=== PATIENT | female | born 1945 | race Hispanic/Latino ===

== ENCOUNTER 2020-11-17 08:30 | Inpatient (IN) | payer MEDICARE ==
[~2020-11-17] VITALS: Ht 149.9 cm; Wt 73.9 kg
[2020-11-17] MEDS ORDERED: PIPER-TAZ 3.375 GM 50 ML IV ONE (08:45)
[2020-11-17] MEDS ORDERED: VANCOMYCIN 1GM/NS 250 ML 250 ML IV ONE (09:30)
[2020-11-17] MEDS ORDERED: VANCOMYCIN 1GM/NS 250 ML 250 ML ONE (09:41)
[2020-11-17] MEDS ORDERED: PIPER-TAZ 3.375 GM 50 ML ONE (09:41)
[2020-11-17] MEDS ORDERED: MORPHINE SULFATE 5 MG/ML VIAL IV ONE (10:00)
[2020-11-17] MEDS ORDERED: MORPHINE SULFATE INJ 4 MG/ML INJ 1ML IV ONE (10:07)
[2020-11-17] MEDS ORDERED: MORPHINE SULFATE INJ 4 MG/ML INJ 1ML ONE (10:14)
[2020-11-17] MEDS ORDERED: ONDANSETRON HCL INJ 2MG/ML 2ML 2 MG/ML VIAL IV PRN (11:00)
[2020-11-17] MEDS ORDERED: SODIUM CHLORIDE FLUSH 10 ML SYR INJ PRN (11:00)
[2020-11-17 13:28] VITALS: BP 98/52
[2020-11-17 17:04] VITALS: BP 98/52
[2020-11-17] MEDS ORDERED: RENAGEL800 MG PO (17:05)
[2020-11-17] MEDS ORDERED: ULTRAM50 MG PO (17:05)
[2020-11-17] MEDS ORDERED: SYNTHROID100 MCG PO (17:05)
[2020-11-17] MEDS ORDERED: LIPITOR20 MG PO (17:05)
[2020-11-17] MEDS ORDERED: MIDODRINE HCL5 MG PO (17:05)
[2020-11-17] MEDS ORDERED: SUCRALFATE1 G/10 ML PO (17:05)
[2020-11-17] MEDS ORDERED: ASPIRIN EC81 MG PO (17:05)
[2020-11-17] MEDS ORDERED: PANTOPRAZOLE SO40 MG PO (17:05)
[2020-11-17] MEDS: MIDODRINE HCL 5 MG TABLET PO SCH (17:15)
[2020-11-17 20:43] VITALS: BP 112/61
[2020-11-17 21:00] VITALS: BP 112/61
[2020-11-17] MEDS: DEXTROSE 50% SYRINGE 50 ML IV PRN (21:26)
[2020-11-18] VITALS (7 sets, daily range): BP systolic 96–146; BP diastolic 36–57
[2020-11-18] MEDS: MIDODRINE HCL 5 MG TABLET PO SCH ×3 (08:00→16:00)
[2020-11-18] MEDS: HYDROCODONE/APAP 10MG-325MG TAB PO PRN ×2 (08:32→12:55)
[2020-11-18] MEDS: GABAPENTIN 100 MG CAP PO SCH ×3 (08:32→16:55)
[2020-11-18] MEDS ORDERED: VANCOMYCIN 1GM/NS 250 ML 250 ML IV SCH (08:45)
[2020-11-18] MEDS: MEGESTROL ACETATE 40 MG TAB PO SCH ×2 (09:00→16:13)
[2020-11-18] MEDS ORDERED: SODIUM THIOSULFATE 25 GM in SODIUM CHLORIDE 0.9% 100 ML 100 ML IV SCH (09:00)
[2020-11-18 09:46] LABS: BASOPHILS % 0.3 % (0.0-1.0); EOSINOPHILS # (AUTO) 0.1 (0.0-0.4); EOSINOPHILS % 1.1 % (0.0-6.0); HEMOGLOBIN 8.7 g/dL (12.0-16.0); LYMPHOCYTES # (AUTO) 0.9 (1.0-3.2); LYMPHOCYTES % 9.2 % (18.0-39.1); MEAN CORPUSCULAR HEMOGLOBIN 29.5 pg (28-32); MEAN CORPUSCULAR VOLUME 98.3 fL (81-99); MONOCYTES % 9.6 % (4.4-11.3); NEUTROPHILS # (AUTO) 7.9 (2.1-6.9); NEUTROPHILS % 79.3 % (38.7-80.0); PLATELET COUNT 169 x10e3/uL (140-360); RED BLOOD COUNT 2.95 x10e6/uL (3.6-5.1)
[2020-11-18] MEDS ORDERED: SODIUM CHLORIDE 0.9% 250ML 250 ML ONE (10:00)
[2020-11-18 10:18] LABS: ANION GAP 16.1 mmol/L (8-16); CALCIUM 7.5 mg/dL (8.4-10.2); CREATININE, SERUM 3.56 mg/dL (0.57-1.11); POTASSIUM 4.1 mmol/L (3.5-5.1)
[2020-11-18] MEDS: PIPERACILLIN/TAZO 2.25 GM 50 ML IV SCH ×3 (11:40→16:55)
[2020-11-18] MEDS: LACTOBACILLUS ACIDOPHILUS CAPSULE PO SCH ×2 (12:01→16:00)
[2020-11-18] MEDS ORDERED: SODIUM CHLORIDE 0.9% 1000ML 2,000 ML ONE (18:32)
[2020-11-18] MEDS ORDERED: ALBUMIN 25% 12.5GM 0.25 GM/ML BTL IV PRN (18:45)
[2020-11-18] MEDS ORDERED: SODIUM CHLORIDE 0.9% 1000ML 2,000 ML IV PRN (18:45)
[2020-11-18] MEDS: SODIUM THIOSULFATE IV SCH (22:00)
[2020-11-18] MEDS: SODIUM CHLORIDE 0.9% IV SCH (22:00)
[2020-11-19] VITALS (8 sets, daily range): BP systolic 71–100; BP diastolic 39–64
[2020-11-19] MEDS: EPOETIN ALFA-EPBX 10,000 UNIT/ML VIAL SC SCH (00:30)
[2020-11-19] MEDS: GABAPENTIN 100 MG CAP PO SCH ×3 (05:13→22:13)
[2020-11-19] MEDS: PIPERACILLIN/TAZO 2.25 GM 50 ML IV SCH ×5 (05:13→23:02)
[2020-11-19 06:35] LABS: BASOPHILS % 0.4 % (0.0-1.0); EOSINOPHILS # (AUTO) 0.1 (0.0-0.4); EOSINOPHILS % 1.4 % (0.0-6.0); HEMATOCRIT 26.3 % (34.2-44.1); HEMOGLOBIN 7.7 g/dL (12.0-16.0); LYMPHOCYTES # (AUTO) 0.9 (1.0-3.2); LYMPHOCYTES % 8.4 % (18.0-39.1); MEAN CORPUSCULAR HEMOGLOBIN 29.8 pg (28-32); MEAN CORPUSCULAR HGB CONC 29.3 g/dL (31-35); MEAN CORPUSCULAR VOLUME 101.9 fL (81-99); MONOCYTES # (AUTO) 0.8 (0.2-0.8); NEUTROPHILS # (AUTO) 8.3 (2.1-6.9); NEUTROPHILS % 81.2 % (38.7-80.0); PLATELET COUNT 128 x10e3/uL (140-360); RED BLOOD COUNT 2.58 x10e6/uL (3.6-5.1); RED CELL DISTRIBUTION WIDTH 18.5 % (11.7-14.4)
[2020-11-19 07:20] LABS: ANION GAP 19.3 mmol/L (8-16); CALCIUM 7.4 mg/dL (8.4-10.2); CREATININE, SERUM 2.26 mg/dL (0.57-1.11); POTASSIUM 4.3 mmol/L (3.5-5.1)
[2020-11-19 07:37] LABS: MAGNESIUM 1.6 MG/DL (1.3-2.1); PHOSPHORUS 1.2 MG/DL (2.3-4.7)
[2020-11-19] MEDS: MIDODRINE HCL 5 MG TABLET PO SCH ×2 (08:41→16:06)
[2020-11-19] MEDS: LACTOBACILLUS ACIDOPHILUS CAPSULE PO SCH ×2 (08:42→16:06)
[2020-11-19] MEDS: MEGESTROL ACETATE 40 MG TAB PO SCH ×2 (08:42→16:06)
[2020-11-19] MEDS: HYDROCODONE/APAP 10MG-325MG TAB PO PRN (10:04)
[2020-11-19] MEDS ORDERED: LACTULOSE SYRUP 20 GM/30 ML UDC PO PRN (10:45)
[2020-11-19] MEDS ORDERED: SODIUM HYPOCHLORITE 0.25% 480 ML SOLN IR ONE (11:00)
[2020-11-19] MEDS ORDERED: GABAPENTIN 100 MG CAP PO SCH (12:00)
[2020-11-19] MEDS: HYDROCODONE/APAP 7.5MG-325MG 1 EA TAB PO SCH ×3 (12:33→23:02)
[2020-11-19] MEDS ORDERED: SODIUM PHOSPHATE IN 0.9 % NACL 20 MMOL in SODIUM CHLORIDE 0.9% 250ML 250 ML IV ONE ×2 (13:00)
[2020-11-19] MEDS: HYDROCORTISONE SOD SUCCINATE 100 MG VIAL IV SCH ×2 (14:26→22:13)
[2020-11-19] MEDS: SENNA-S TABLET PO SCH (16:07)
[2020-11-19] MEDS: MORPHINE SULFATE INJ 4 MG/ML INJ 1ML IV PRN (16:15)
[2020-11-20] VITALS (9 sets, daily range): BP systolic 97–129; BP diastolic 51–68
[2020-11-20] MEDS: MORPHINE SULFATE INJ 4 MG/ML INJ 1ML IV PRN ×2 (04:58→13:31)
[2020-11-20] MEDS: PIPERACILLIN/TAZO 2.25 GM 50 ML IV SCH ×4 (05:05→23:40)
[2020-11-20] MEDS: HYDROCORTISONE SOD SUCCINATE 100 MG VIAL IV SCH ×3 (05:05→21:12)
[2020-11-20] MEDS: HYDROCODONE/APAP 7.5MG-325MG 1 EA TAB PO SCH ×4 (05:52→23:40)
[2020-11-20 07:11] LABS: ALBUMIN 2.2 g/dL (3.5-5.0); ALBUMIN/GLOBULIN RATIO 0.6 (0.8-2.0); ANION GAP 27.3 mmol/L (8-16); CALCIUM 7.4 mg/dL (8.4-10.2); CREATININE, SERUM 3.11 mg/dL (0.57-1.11); MAGNESIUM 1.8 MG/DL (1.3-2.1); PHOSPHORUS 3.5 MG/DL (2.3-4.7); POTASSIUM 5.3 mmol/L (3.5-5.1)
[2020-11-20] MEDS: MEGESTROL ACETATE 40 MG TAB PO SCH ×2 (09:06→17:33)
[2020-11-20] MEDS: MIDODRINE HCL 5 MG TABLET PO SCH ×3 (09:06→17:33)
[2020-11-20] MEDS: GABAPENTIN 100 MG CAP PO SCH ×3 (09:07→21:00)
[2020-11-20] MEDS: LACTOBACILLUS ACIDOPHILUS CAPSULE PO SCH ×2 (09:07→17:33)
[2020-11-20] MEDS: SENNA-S TABLET PO SCH ×2 (09:07→17:33)
[2020-11-21] VITALS (10 sets, daily range): BP systolic 57–135; BP diastolic 43–99
[2020-11-21] MEDS: HYDROCODONE/APAP 7.5MG-325MG 1 EA TAB PO SCH ×4 (05:38→17:10)
[2020-11-21] MEDS: HYDROCORTISONE SOD SUCCINATE 100 MG VIAL IV SCH ×3 (05:38→22:30)
[2020-11-21] MEDS: PIPERACILLIN/TAZO 2.25 GM 50 ML IV SCH ×4 (05:38→17:48)
[2020-11-21] MEDS: MIDODRINE HCL 5 MG TABLET PO SCH ×3 (08:49→15:16)
[2020-11-21] MEDS: LACTOBACILLUS ACIDOPHILUS CAPSULE PO SCH ×2 (08:50→16:24)
[2020-11-21] MEDS: MEGESTROL ACETATE 40 MG TAB PO SCH ×2 (08:50→16:24)
[2020-11-21] MEDS: GABAPENTIN 100 MG CAP PO SCH ×3 (08:50→21:00)
[2020-11-21] MEDS: SENNA-S TABLET PO SCH ×2 (08:51→16:24)
[2020-11-21 14:38] LABS: ALBUMIN 1.9 g/dL (3.5-5.0); ALBUMIN/GLOBULIN RATIO 0.6 (0.8-2.0); ANION GAP 22.8 mmol/L (8-16); CALCIUM 7.3 mg/dL (8.4-10.2); CREATININE, SERUM 3.42 mg/dL (0.57-1.11); PHOSPHORUS 4.8 MG/DL (2.3-4.7); POTASSIUM 4.8 mmol/L (3.5-5.1)
[2020-11-22] VITALS (8 sets, daily range): BP systolic 98–123; BP diastolic 52–71
[2020-11-22] MEDS: PIPERACILLIN/TAZO 2.25 GM 50 ML IV SCH ×3 (00:01→11:51)
[2020-11-22] MEDS: HYDROCODONE/APAP 7.5MG-325MG 1 EA TAB PO SCH ×4 (04:30→18:54)
[2020-11-22 06:37] LABS: BASOPHILS % 0.1 % (0.0-1.0); HEMATOCRIT 24.7 % (34.2-44.1); HEMOGLOBIN 7.5 g/dL (12.0-16.0); LYMPHOCYTES # (AUTO) 0.4 (1.0-3.2); LYMPHOCYTES % 3.9 % (18.0-39.1); MEAN CORPUSCULAR HEMOGLOBIN 29.5 pg (28-32); MEAN CORPUSCULAR HGB CONC 30.4 g/dL (31-35); MEAN CORPUSCULAR VOLUME 97.2 fL (81-99); MONOCYTES # (AUTO) 0.4 (0.2-0.8); MONOCYTES % 3.6 % (4.4-11.3); NEUTROPHILS # (AUTO) 10.4 (2.1-6.9); NEUTROPHILS % 91.7 % (38.7-80.0); PLATELET COUNT 108 x10e3/uL (140-360); RED BLOOD COUNT 2.54 x10e6/uL (3.6-5.1); RED CELL DISTRIBUTION WIDTH 17.7 % (11.7-14.4)
[2020-11-22 06:57] LABS: CALCIUM 7.7 mg/dL (8.4-10.2); CREATININE, SERUM 2.3 mg/dL (0.57-1.11)
[2020-11-22] MEDS: HYDROCORTISONE SOD SUCCINATE 100 MG VIAL IV SCH ×2 (07:15→21:44)
[2020-11-22] MEDS ORDERED: DEXAMETHASONE SOD PHOS 10 MG/1 ML VIAL IV PRN (08:00)
[2020-11-22] MEDS: MEGESTROL ACETATE 40 MG TAB PO SCH ×2 (08:05→17:00)
[2020-11-22] MEDS: LACTOBACILLUS ACIDOPHILUS CAPSULE PO SCH ×2 (08:05→17:00)
[2020-11-22] MEDS: GABAPENTIN 100 MG CAP PO SCH ×3 (08:05→21:45)
[2020-11-22] MEDS: MIDODRINE HCL 5 MG TABLET PO SCH ×3 (08:05→16:00)
[2020-11-22] MEDS: SENNA-S TABLET PO SCH ×2 (08:06→17:00)
[2020-11-22] MEDS ORDERED: SODIUM CHLORIDE 0.9% 250ML 250 ML IV ONE (09:45)
[2020-11-22] MEDS ORDERED: ACETAMINOPHEN 325 MG TAB PO ONE (09:45)
[2020-11-22] MEDS: MORPHINE SULFATE INJ 4 MG/ML INJ 1ML IV PRN (10:28)
[2020-11-22 11:08] LABS: ANISOCYTOSIS SLIGHT; LYMPHOCYTES % (MANUAL) 2 % (19-48); MONOCYTES % (MANUAL) 1 % (3.4-9.0); NEUTROPHILS % (MANUAL) 97 % (40-74); RBC MORPHOLOGY COMMENT NORMAL
[2020-11-22 11:09] LABS: PLATELET MORPHOLOGY COMMENT NORMAL
[2020-11-22 11:11] LABS: HYPOCHROMASIA SLIGHT; PLATELET ESTIMATE SLIGHTLY DECREASED; POIKILOCYTOSIS SLIGHT
[2020-11-22] MEDS ORDERED: ACETAMINOPHEN 325 MG TAB ONE (14:02)
[2020-11-22] MEDS ORDERED: SODIUM CHLORIDE 0.9% 250ML 250 ML ONE (14:02)
[2020-11-22] MEDS: CEFTRIAXONE SOD 1 GM/NS 50 ML 50 ML IV SCH (18:54)
[2020-11-22] MEDS: GENTAMICIN 120MG/NS 100ML 100 ML IV SCH (19:21)
[2020-11-22] MEDS: EPOETIN ALFA-EPBX 10,000 UNIT/ML VIAL SC SCH (19:39)
[2020-11-23] VITALS (8 sets, daily range): BP systolic 94–110; BP diastolic 46–87
[2020-11-23] MEDS: HYDROCODONE/APAP 7.5MG-325MG 1 EA TAB PO SCH ×2 (00:08→06:00)
[2020-11-23] MEDS ORDERED: DEXAMETHASONE SOD PHOS 10 MG/1 ML VIAL ONE (00:24)
[2020-11-23] MEDS ORDERED: SODIUM CHLORIDE 0.9% 250ML 250 ML ONE (00:25)
[2020-11-23] MEDS: CEFTRIAXONE SOD 1 GM/NS 50 ML 50 ML IV SCH ×2 (06:09→17:53)
[2020-11-23 06:24] LABS: BASOPHILS % 0.1 % (0.0-1.0); HEMOGLOBIN 10.2 g/dL (12.0-16.0); LYMPHOCYTES # (AUTO) 0.4 (1.0-3.2); LYMPHOCYTES % 3.9 % (18.0-39.1); MEAN CORPUSCULAR HGB CONC 31.9 g/dL (31-35); MEAN CORPUSCULAR VOLUME 94.1 fL (81-99); MONOCYTES # (AUTO) 0.3 (0.2-0.8); MONOCYTES % 2.5 % (4.4-11.3); NEUTROPHILS # (AUTO) 10.2 (2.1-6.9); NEUTROPHILS % 92.9 % (38.7-80.0); PLATELET COUNT 88 x10e3/uL (140-360); RED CELL DISTRIBUTION WIDTH 17.2 % (11.7-14.4)
[2020-11-23 06:44] LABS: ALBUMIN 2.4 g/dL (3.5-5.0); ALBUMIN/GLOBULIN RATIO 0.7 (0.8-2.0); ANION GAP 23.9 mmol/L (8-16); CALCIUM 7.4 mg/dL (8.4-10.2); CREATININE, SERUM 2.88 mg/dL (0.57-1.11); MAGNESIUM 1.9 MG/DL (1.3-2.1); PHOSPHORUS 5.2 MG/DL (2.3-4.7); POTASSIUM 5.9 mmol/L (3.5-5.1)
[2020-11-23] MEDS: MEGESTROL ACETATE 40 MG TAB PO SCH ×2 (08:17→17:52)
[2020-11-23] MEDS: MIDODRINE HCL 5 MG TABLET PO SCH ×3 (08:17→15:28)
[2020-11-23] MEDS: LACTOBACILLUS ACIDOPHILUS CAPSULE PO SCH ×2 (08:18→17:52)
[2020-11-23] MEDS: GABAPENTIN 100 MG CAP PO SCH ×3 (08:18→20:56)
[2020-11-23] MEDS: SENNA-S TABLET PO SCH ×2 (08:19→17:52)
[2020-11-23] MEDS: HYDROCORTISONE SOD SUCCINATE 100 MG VIAL IV SCH ×2 (09:00→20:56)
[2020-11-23] MEDS: PAROXETINE HCL 20 MG TAB PO SCH (09:45)
[2020-11-23] MEDS: HYDROCODONE/APAP 10MG-325MG TAB PO SCH ×3 (11:53→23:42)
[2020-11-23] MEDS: EPOETIN ALFA-EPBX 10,000 UNIT/ML VIAL SC SCH (13:25)
[2020-11-23] MEDS: GENTAMICIN 120MG/NS 100ML 100 ML IV SCH (15:28)
[2020-11-23] MEDS: ALPRAZOLAM 0.25 MG TAB PO PRN (20:57)
[2020-11-24] VITALS (8 sets, daily range): BP systolic 102–129; BP diastolic 36–58
[2020-11-24] MEDS: CEFTRIAXONE SOD 1 GM/NS 50 ML 50 ML IV SCH ×2 (05:07→17:00)
[2020-11-24] MEDS: HYDROCODONE/APAP 10MG-325MG TAB PO SCH ×3 (05:08→17:16)
[2020-11-24 08:33] LABS: ANION GAP 23.1 mmol/L (8-16); CALCIUM 7.5 mg/dL (8.4-10.2); CREATININE, SERUM 2.31 mg/dL (0.57-1.11); POTASSIUM 4.1 mmol/L (3.5-5.1)
[2020-11-24] MEDS: MEGESTROL ACETATE 40 MG TAB PO SCH ×2 (09:00→16:37)
[2020-11-24] MEDS: GABAPENTIN 100 MG CAP PO SCH ×3 (09:00→20:40)
[2020-11-24] MEDS: MIDODRINE HCL 5 MG TABLET PO SCH ×3 (09:00→16:20)
[2020-11-24] MEDS: PAROXETINE HCL 20 MG TAB PO SCH (09:00)
[2020-11-24] MEDS: SENNA-S TABLET PO SCH ×2 (09:00→16:21)
[2020-11-24] MEDS: LACTOBACILLUS ACIDOPHILUS CAPSULE PO SCH ×2 (09:00→16:37)
[2020-11-24] MEDS: PANTOPRAZOLE SOD 40 MG TABEC PO SCH ×2 (10:27→16:37)
[2020-11-24] MEDS: SUCRALFATE 1 GM/10 ML SUSP PO SCH ×3 (12:12→20:40)
[2020-11-24] MEDS ORDERED: SODIUM CHLORIDE 0.9% 250ML 250 ML ONE (16:37)
[2020-11-24] MEDS: HYDROCORTISONE SOD SUCCINATE 100 MG VIAL IV SCH (16:37)
[2020-11-25] VITALS (11 sets, daily range): BP systolic 76–141; BP diastolic 39–88
[2020-11-25] MEDS: CEFTRIAXONE SOD 1 GM/NS 50 ML 50 ML IV SCH ×2 (06:00→17:15)
[2020-11-25] MEDS: LEVOTHYROXINE SODIUM 100 MCG TAB PO SCH (06:00)
[2020-11-25] MEDS: HYDROCODONE/APAP 10MG-325MG TAB PO SCH ×4 (06:00→17:15)
[2020-11-25 06:51] LABS: BASOPHILS % 0.2 % (0.0-1.0); HEMATOCRIT 33.8 % (34.2-44.1); HEMOGLOBIN 10.4 g/dL (12.0-16.0); LYMPHOCYTES # (AUTO) 0.9 (1.0-3.2); LYMPHOCYTES % 6.7 % (18.0-39.1); MEAN CORPUSCULAR HEMOGLOBIN 29.8 pg (28-32); MEAN CORPUSCULAR HGB CONC 30.8 g/dL (31-35); MEAN CORPUSCULAR VOLUME 96.8 fL (81-99); MONOCYTES # (AUTO) 0.5 (0.2-0.8); MONOCYTES % 3.7 % (4.4-11.3); NEUTROPHILS # (AUTO) 11.4 (2.1-6.9); NEUTROPHILS % 88.6 % (38.7-80.0); PLATELET COUNT 71 x10e3/uL (140-360); RED BLOOD COUNT 3.49 x10e6/uL (3.6-5.1); RED CELL DISTRIBUTION WIDTH 17.6 % (11.7-14.4)
[2020-11-25 07:38] LABS: ANION GAP 22.8 mmol/L (8-16); CALCIUM 7.6 mg/dL (8.4-10.2); CREATININE, SERUM 2.89 mg/dL (0.57-1.11); MAGNESIUM 1.9 MG/DL (1.3-2.1); POTASSIUM 3.8 mmol/L (3.5-5.1)
[2020-11-25] MEDS: PANTOPRAZOLE SOD 40 MG TABEC PO SCH ×2 (08:30→16:50)
[2020-11-25] MEDS: MIDODRINE HCL 5 MG TABLET PO SCH ×3 (08:30→17:15)
[2020-11-25] MEDS: SUCRALFATE 1 GM/10 ML SUSP PO SCH ×4 (08:30→21:36)
[2020-11-25] MEDS: SENNA-S TABLET PO SCH (09:00)
[2020-11-25] MEDS: MEGESTROL ACETATE 40 MG TAB PO SCH ×2 (09:21→16:50)
[2020-11-25] MEDS: GABAPENTIN 100 MG CAP PO SCH ×3 (09:21→21:36)
[2020-11-25] MEDS: LACTOBACILLUS ACIDOPHILUS CAPSULE PO SCH ×2 (09:22→16:50)
[2020-11-25] MEDS: PAROXETINE HCL 20 MG TAB PO SCH (09:28)
[2020-11-25] MEDS ORDERED: ONDANSETRON HCL 4 MG ORAL DISINTEGRATING TAB PO PRN (09:45)
[2020-11-25] MEDS: APIXAB 2.5 MG TABLET PO SCH ×2 (13:48→21:36)
[2020-11-25] MEDS: AMIODARONE HCL 200 MG TAB PO SCH ×2 (13:48→21:00)
[2020-11-25] MEDS: HYDROCORTISONE SOD SUCCINATE 100 MG VIAL IV SCH (16:50)
[2020-11-25] MEDS: MIDODRINE HCL 5 MG TABLET PO PRN (21:36)
[2020-11-26] VITALS (9 sets, daily range): BP systolic 56–223; BP diastolic 33–184
[2020-11-26] MEDS: CEFTRIAXONE SOD 1 GM/NS 50 ML 50 ML IV SCH ×2 (05:11→17:39)
[2020-11-26] MEDS: HYDROCODONE/APAP 10MG-325MG TAB PO SCH ×4 (05:12→17:39)
[2020-11-26] MEDS: LEVOTHYROXINE SODIUM 100 MCG TAB PO SCH (05:12)
[2020-11-26 07:12] LABS: ANION GAP 22.6 mmol/L (8-16); CALCIUM 7.3 mg/dL (8.4-10.2); CREATININE, SERUM 3.51 mg/dL (0.57-1.11); POTASSIUM 3.6 mmol/L (3.5-5.1)
[2020-11-26] MEDS: PANTOPRAZOLE SOD 40 MG TABEC PO SCH ×2 (07:30→17:19)
[2020-11-26] MEDS: SUCRALFATE 1 GM/10 ML SUSP PO SCH ×4 (07:30→21:29)
[2020-11-26] MEDS: MIDODRINE HCL 5 MG TABLET PO SCH ×3 (08:17→17:19)
[2020-11-26] MEDS: ALPRAZOLAM 0.25 MG TAB PO PRN (08:21)
[2020-11-26] MEDS: PAROXETINE HCL 20 MG TAB PO SCH (08:22)
[2020-11-26] MEDS: AMIODARONE HCL 200 MG TAB PO SCH ×2 (08:22→21:29)
[2020-11-26] MEDS: LACTOBACILLUS ACIDOPHILUS CAPSULE PO SCH ×2 (08:22→17:39)
[2020-11-26] MEDS: APIXAB 2.5 MG TABLET PO SCH ×2 (08:22→21:30)
[2020-11-26] MEDS: MEGESTROL ACETATE 40 MG TAB PO SCH ×2 (08:22→17:39)
[2020-11-26] MEDS: GABAPENTIN 100 MG CAP PO SCH ×3 (08:22→21:30)
[2020-11-26] MEDS: DEXTROSE 50% SYRINGE 50 ML IV PRN (12:38)
[2020-11-26] MEDS: HYDROCORTISONE SOD SUCCINATE 100 MG VIAL IV SCH (17:19)
[2020-11-26] MEDS ORDERED: GENTAMICIN 120MG/NS 100ML 100 ML IV SCH (18:00)
[2020-11-27] VITALS (8 sets, daily range): BP systolic 77–123; BP diastolic 31–59
[2020-11-27] MEDS: LEVOTHYROXINE SODIUM 100 MCG TAB PO SCH (06:00)
[2020-11-27] MEDS: HYDROCODONE/APAP 10MG-325MG TAB PO SCH ×4 (06:00→17:23)
[2020-11-27] MEDS: CEFTRIAXONE SOD 1 GM/NS 50 ML 50 ML IV SCH ×2 (06:00→17:23)
[2020-11-27] MEDS: AMIODARONE HCL 200 MG TAB PO SCH ×2 (08:15→21:00)
[2020-11-27] MEDS: SUCRALFATE 1 GM/10 ML SUSP PO SCH ×4 (08:20→21:00)
[2020-11-27] MEDS: PANTOPRAZOLE SOD 40 MG TABEC PO SCH ×2 (08:20→16:35)
[2020-11-27] MEDS: PAROXETINE HCL 20 MG TAB PO SCH (08:21)
[2020-11-27] MEDS: GABAPENTIN 100 MG CAP PO SCH ×3 (08:21→21:00)
[2020-11-27] MEDS: APIXAB 2.5 MG TABLET PO SCH ×2 (08:21→21:00)
[2020-11-27] MEDS: MEGESTROL ACETATE 40 MG TAB PO SCH ×2 (08:21→16:35)
[2020-11-27] MEDS: LACTOBACILLUS ACIDOPHILUS CAPSULE PO SCH ×2 (08:21→16:35)
[2020-11-27] MEDS: MIDODRINE HCL 5 MG TABLET PO SCH ×3 (08:21→16:35)
[2020-11-27] MEDS: HYDROCORTISONE SOD SUCCINATE 100 MG VIAL IV SCH (16:35)
[2020-11-28] VITALS (7 sets, daily range): BP systolic 102–181; BP diastolic 51–151
[2020-11-28] MEDS: LEVOTHYROXINE SODIUM 100 MCG TAB PO SCH (06:00)
[2020-11-28] MEDS: CEFTRIAXONE SOD 1 GM/NS 50 ML 50 ML IV SCH ×2 (06:00→17:51)
[2020-11-28] MEDS: HYDROCODONE/APAP 10MG-325MG TAB PO SCH ×4 (06:00→17:51)
[2020-11-28] MEDS: PANTOPRAZOLE SOD 40 MG TABEC PO SCH ×2 (08:37→17:50)
[2020-11-28] MEDS: SUCRALFATE 1 GM/10 ML SUSP PO SCH ×4 (08:37→21:59)
[2020-11-28] MEDS: AMIODARONE HCL 200 MG TAB PO SCH ×2 (08:38→21:00)
[2020-11-28] MEDS: APIXAB 2.5 MG TABLET PO SCH ×2 (08:38→21:59)
[2020-11-28] MEDS: MIDODRINE HCL 5 MG TABLET PO SCH ×3 (08:38→17:50)
[2020-11-28] MEDS: MEGESTROL ACETATE 40 MG TAB PO SCH ×2 (08:39→17:51)
[2020-11-28] MEDS: GABAPENTIN 100 MG CAP PO SCH ×3 (08:39→21:59)
[2020-11-28] MEDS: PAROXETINE HCL 20 MG TAB PO SCH (08:40)
[2020-11-28] MEDS: LACTOBACILLUS ACIDOPHILUS CAPSULE PO SCH ×2 (08:40→17:51)
[2020-11-28 09:10] LABS: BASOPHILS % 0.1 % (0.0-1.0); EOSINOPHILS % 0.1 % (0.0-6.0); HEMATOCRIT 31.3 % (34.2-44.1); HEMOGLOBIN 9.8 g/dL (12.0-16.0); LYMPHOCYTES # (AUTO) 0.7 (1.0-3.2); LYMPHOCYTES % 5.3 % (18.0-39.1); MEAN CORPUSCULAR HEMOGLOBIN 30.2 pg (28-32); MEAN CORPUSCULAR HGB CONC 31.3 g/dL (31-35); MEAN CORPUSCULAR VOLUME 96.6 fL (81-99); MONOCYTES # (AUTO) 0.5 (0.2-0.8); MONOCYTES % 3.8 % (4.4-11.3); NEUTROPHILS # (AUTO) 12.2 (2.1-6.9); PLATELET COUNT 88 x10e3/uL (140-360); RED BLOOD COUNT 3.24 x10e6/uL (3.6-5.1); RED CELL DISTRIBUTION WIDTH 18.1 % (11.7-14.4)
[2020-11-28 09:31] LABS: ALBUMIN 2.3 g/dL (3.5-5.0); ALBUMIN/GLOBULIN RATIO 0.7 (0.8-2.0); ANION GAP 18.3 mmol/L (8-16); CALCIUM 7.5 mg/dL (8.4-10.2); CREATININE, SERUM 3.52 mg/dL (0.57-1.11); POTASSIUM 3.3 mmol/L (3.5-5.1)
[2020-11-28] MEDS: HYDROCORTISONE SOD SUCCINATE 100 MG VIAL IV SCH (17:50)
[2020-11-29] VITALS (8 sets, daily range): BP systolic 109–158; BP diastolic 48–79
[2020-11-29 05:29] LABS: BASOPHILS % 0.2 % (0.0-1.0); HEMOGLOBIN 8.8 g/dL (12.0-16.0); LYMPHOCYTES # (AUTO) 0.6 (1.0-3.2); LYMPHOCYTES % 4.7 % (18.0-39.1); MEAN CORPUSCULAR HEMOGLOBIN 30.8 pg (28-32); MEAN CORPUSCULAR HGB CONC 31.4 g/dL (31-35); MEAN CORPUSCULAR VOLUME 97.9 fL (81-99); MONOCYTES # (AUTO) 0.5 (0.2-0.8); MONOCYTES % 4.1 % (4.4-11.3); NEUTROPHILS # (AUTO) 11.4 (2.1-6.9); PLATELET COUNT 91 x10e3/uL (140-360); RED BLOOD COUNT 2.86 x10e6/uL (3.6-5.1); RED CELL DISTRIBUTION WIDTH 17.9 % (11.7-14.4)
[2020-11-29] MEDS: HYDROCODONE/APAP 10MG-325MG TAB PO SCH ×5 (06:00→23:51)
[2020-11-29 06:19] LABS: ANION GAP 19.3 mmol/L (8-16); CALCIUM 7.3 mg/dL (8.4-10.2); CREATININE, SERUM 4.12 mg/dL (0.57-1.11); MAGNESIUM 1.8 MG/DL (1.3-2.1); PHOSPHORUS 5.9 MG/DL (2.3-4.7); POTASSIUM 3.3 mmol/L (3.5-5.1)
[2020-11-29] MEDS: CEFTRIAXONE SOD 1 GM/NS 50 ML 50 ML IV SCH ×2 (06:31→16:24)
[2020-11-29] MEDS: LEVOTHYROXINE SODIUM 100 MCG TAB PO SCH (06:31)
[2020-11-29] MEDS: APIXAB 2.5 MG TABLET PO SCH ×2 (08:32→20:30)
[2020-11-29] MEDS: SUCRALFATE 1 GM/10 ML SUSP PO SCH ×4 (08:32→20:30)
[2020-11-29] MEDS: MIDODRINE HCL 5 MG TABLET PO SCH ×3 (08:32→16:22)
[2020-11-29] MEDS: MEGESTROL ACETATE 40 MG TAB PO SCH ×2 (08:32→16:24)
[2020-11-29] MEDS: AMIODARONE HCL 200 MG TAB PO SCH ×2 (08:32→20:30)
[2020-11-29] MEDS: PANTOPRAZOLE SOD 40 MG TABEC PO SCH ×2 (08:32→16:23)
[2020-11-29] MEDS: PAROXETINE HCL 20 MG TAB PO SCH (08:33)
[2020-11-29] MEDS: GABAPENTIN 100 MG CAP PO SCH ×3 (08:33→20:30)
[2020-11-29] MEDS: LACTOBACILLUS ACIDOPHILUS CAPSULE PO SCH ×2 (08:33→16:36)
[2020-11-29] MEDS ORDERED: POTASSIUM CHLORIDE 20 MEQ TAB CR PO ONE (09:15)
[2020-11-29] MEDS ORDERED: MANNITOL 25% 12.5GM/50 ML VIAL IV PRN (13:00)
[2020-11-29] MEDS: MIDODRINE HCL 5 MG TABLET PO PRN (14:00)
[2020-11-29] MEDS ORDERED: CALCITRIOL0.5 MCG PO (14:59)
[2020-11-29] MEDS ORDERED: LEVOTHYROXINE88 MCG PO (14:59)
[2020-11-29] MEDS: HYDROCORTISONE SOD SUCCINATE 100 MG VIAL IV SCH (16:23)
[2020-11-29] MEDS: SODIUM HYPOCHLORITE 0.25% 480 ML SOLN IR SCH (16:37)
[2020-11-29] MEDS: SODIUM THIOSULFATE IV SCH (16:37)
[2020-11-29] MEDS: SODIUM CHLORIDE 0.9% IV SCH (16:37)
[2020-11-29] MEDS: GENTAMICIN 60MG/NS 50ML 50 ML IV SCH (18:30)
[2020-11-30] VITALS (7 sets, daily range): BP systolic 115–129; BP diastolic 46–90
[2020-11-30] MEDS: LEVOTHYROXINE SODIUM 100 MCG TAB PO SCH (05:48)
[2020-11-30] MEDS: HYDROCODONE/APAP 10MG-325MG TAB PO SCH (06:00)
[2020-11-30] MEDS: CEFTRIAXONE SOD 1 GM/NS 50 ML 50 ML IV SCH (06:05)
[2020-11-30] MEDS ORDERED: ALPRAZOLAM 0.25 MG TAB PO PRN (08:15)
[2020-11-30 08:17] LABS: ANION GAP 26.2 mmol/L (8-16); CALCIUM 7.9 mg/dL (8.4-10.2); CREATININE, SERUM 2.89 mg/dL (0.57-1.11); POTASSIUM 3.2 mmol/L (3.5-5.1)
[2020-11-30] MEDS: SUCRALFATE 1 GM/10 ML SUSP PO SCH ×4 (09:06→20:35)
[2020-11-30] MEDS: PANTOPRAZOLE SOD 40 MG TABEC PO SCH ×2 (09:06→17:48)
[2020-11-30] MEDS: AMIODARONE HCL 200 MG TAB PO SCH ×2 (09:07→20:36)
[2020-11-30] MEDS: MIDODRINE HCL 5 MG TABLET PO SCH ×3 (09:07→17:48)
[2020-11-30] MEDS: APIXAB 2.5 MG TABLET PO SCH ×2 (09:07→20:35)
[2020-11-30] MEDS: GABAPENTIN 100 MG CAP PO SCH ×3 (09:08→20:35)
[2020-11-30] MEDS: PAROXETINE HCL 20 MG TAB PO SCH (09:08)
[2020-11-30] MEDS: MEGESTROL ACETATE 40 MG TAB PO SCH ×2 (09:08→17:48)
[2020-11-30] MEDS: LACTOBACILLUS ACIDOPHILUS CAPSULE PO SCH ×2 (09:08→17:48)
[2020-11-30] MEDS: SODIUM HYPOCHLORITE 0.25% 480 ML SOLN IR SCH (09:09)
[2020-11-30] MEDS ORDERED: POTASSIUM CHLORIDE 20 MEQ TAB CR PO ONE (09:15)
[2020-11-30] MEDS ORDERED: CEFTRIAXONE SOD 1 GM/NS 50 ML 50 ML IV SCH (18:00)
[2020-11-30] MEDS: CEFTRIAXONE SOD 1 GM in SODIUM CHLORIDE 0.9% 50ML 50 ML IV SCH (18:00)
[2020-12-01] VITALS (9 sets, daily range): BP systolic 91–144; BP diastolic 47–80
[2020-12-01 07:17] LABS: BASOPHILS % 0.2 % (0.0-1.0); EOSINOPHILS # (AUTO) 0.1 (0.0-0.4); EOSINOPHILS % 0.9 % (0.0-6.0); HEMATOCRIT 24.5 % (34.2-44.1); LYMPHOCYTES # (AUTO) 0.7 (1.0-3.2); LYMPHOCYTES % 6.6 % (18.0-39.1); MEAN CORPUSCULAR HEMOGLOBIN 30.2 pg (28-32); MEAN CORPUSCULAR HGB CONC 32.7 g/dL (31-35); MEAN CORPUSCULAR VOLUME 92.5 fL (81-99); MONOCYTES # (AUTO) 0.5 (0.2-0.8); MONOCYTES % 4.3 % (4.4-11.3); NEUTROPHILS # (AUTO) 9.2 (2.1-6.9); NEUTROPHILS % 87.2 % (38.7-80.0); PLATELET COUNT 90 x10e3/uL (140-360); RED BLOOD COUNT 2.65 x10e6/uL (3.6-5.1); RED CELL DISTRIBUTION WIDTH 18.1 % (11.7-14.4)
[2020-12-01] MEDS: LEVOTHYROXINE SODIUM 100 MCG TAB PO SCH (07:42)
[2020-12-01] MEDS: CEFTRIAXONE SOD 1 GM in SODIUM CHLORIDE 0.9% 50ML 50 ML IV SCH ×2 (07:42→18:00)
[2020-12-01 07:46] LABS: ANION GAP 26.3 mmol/L (8-16); CALCIUM 7.9 mg/dL (8.4-10.2); CREATININE, SERUM 3.52 mg/dL (0.57-1.11); MAGNESIUM 1.8 MG/DL (1.3-2.1); PHOSPHORUS 3.7 MG/DL (2.3-4.7); POTASSIUM 3.3 mmol/L (3.5-5.1)
[2020-12-01] MEDS ORDERED: POTASSIUM CHLORIDE 20 MEQ TAB CR PO STA (08:58)
[2020-12-01] MEDS ORDERED: EPOETIN ALFA-EPBX 10,000 UNIT/ML VIAL SC SCH ×2 (09:00→09:15)
[2020-12-01] MEDS: SUCRALFATE 1 GM/10 ML SUSP PO SCH ×4 (09:54→21:00)
[2020-12-01] MEDS: PANTOPRAZOLE SOD 40 MG TABEC PO SCH ×2 (09:54→17:38)
[2020-12-01] MEDS: MIDODRINE HCL 5 MG TABLET PO SCH ×3 (09:54→16:22)
[2020-12-01] MEDS: APIXAB 2.5 MG TABLET PO SCH ×2 (09:55→21:00)
[2020-12-01] MEDS: PAROXETINE HCL 20 MG TAB PO SCH (09:55)
[2020-12-01] MEDS: GABAPENTIN 100 MG CAP PO SCH ×3 (09:55→21:00)
[2020-12-01] MEDS: SODIUM HYPOCHLORITE 0.25% 480 ML SOLN IR SCH (09:55)
[2020-12-01] MEDS: AMIODARONE HCL 200 MG TAB PO SCH ×2 (09:55→21:00)
[2020-12-01] MEDS: LACTOBACILLUS ACIDOPHILUS CAPSULE PO SCH ×2 (09:55→17:38)
[2020-12-01] MEDS: MEGESTROL ACETATE 40 MG TAB PO SCH ×2 (09:55→17:38)
[2020-12-01] MEDS: GENTAMICIN 60MG/NS 50ML 50 ML IV SCH (21:00)
[2020-12-02] VITALS (8 sets, daily range): BP systolic 91–124; BP diastolic 48–89
[2020-12-02] MEDS: LEVOTHYROXINE SODIUM 100 MCG TAB PO SCH (06:09)
[2020-12-02] MEDS: CEFTRIAXONE SOD 1 GM in SODIUM CHLORIDE 0.9% 50ML 50 ML IV SCH ×2 (06:09→17:08)
[2020-12-02 06:27] LABS: ANION GAP 19.3 mmol/L (8-16); CREATININE, SERUM 2.35 mg/dL (0.57-1.11); MAGNESIUM 1.7 MG/DL (1.3-2.1); POTASSIUM 3.3 mmol/L (3.5-5.1)
[2020-12-02] MEDS: MIDODRINE HCL 5 MG TABLET PO SCH ×3 (08:20→16:41)
[2020-12-02] MEDS: SUCRALFATE 1 GM/10 ML SUSP PO SCH ×4 (08:20→21:36)
[2020-12-02] MEDS: PANTOPRAZOLE SOD 40 MG TABEC PO SCH ×2 (08:20→16:41)
[2020-12-02] MEDS: MEGESTROL ACETATE 40 MG TAB PO SCH ×2 (08:21→16:42)
[2020-12-02] MEDS: APIXAB 2.5 MG TABLET PO SCH ×2 (08:21→21:36)
[2020-12-02] MEDS: SODIUM HYPOCHLORITE 0.25% 480 ML SOLN IR SCH (08:21)
[2020-12-02] MEDS: AMIODARONE HCL 200 MG TAB PO SCH ×2 (08:21→21:36)
[2020-12-02] MEDS: GABAPENTIN 100 MG CAP PO SCH ×3 (08:21→21:36)
[2020-12-02] MEDS: PAROXETINE HCL 20 MG TAB PO SCH (08:21)
[2020-12-02] MEDS: LACTOBACILLUS ACIDOPHILUS CAPSULE PO SCH ×2 (08:21→16:42)
[2020-12-02] MEDS: POTASSIUM CHLORIDE 20 MEQ TAB CR PO SCH (11:37)
[2020-12-02] MEDS: MAGNESIUM OXIDE 400 MG TAB PO SCH (16:42)
[2020-12-03] VITALS (8 sets, daily range): BP systolic 76–151; BP diastolic 36–121
[2020-12-03] MEDS: CEFTRIAXONE SOD 1 GM in SODIUM CHLORIDE 0.9% 50ML 50 ML IV SCH ×2 (06:00→18:00)
[2020-12-03] MEDS: LEVOTHYROXINE SODIUM 100 MCG TAB PO SCH (06:00)
[2020-12-03 06:40] LABS: BASOPHILS % 0.2 % (0.0-1.0); EOSINOPHILS # (AUTO) 0.1 (0.0-0.4); EOSINOPHILS % 0.8 % (0.0-6.0); HEMATOCRIT 26.2 % (34.2-44.1); HEMOGLOBIN 8.1 g/dL (12.0-16.0); LYMPHOCYTES # (AUTO) 0.7 (1.0-3.2); LYMPHOCYTES % 6.7 % (18.0-39.1); MEAN CORPUSCULAR HEMOGLOBIN 29.7 pg (28-32); MEAN CORPUSCULAR HGB CONC 30.9 g/dL (31-35); MONOCYTES # (AUTO) 0.4 (0.2-0.8); MONOCYTES % 4.2 % (4.4-11.3); NEUTROPHILS # (AUTO) 8.7 (2.1-6.9); NEUTROPHILS % 87.5 % (38.7-80.0); PLATELET COUNT 85 x10e3/uL (140-360); RED BLOOD COUNT 2.73 x10e6/uL (3.6-5.1); RED CELL DISTRIBUTION WIDTH 18.3 % (11.7-14.4)
[2020-12-03 07:15] LABS: ANION GAP 22.8 mmol/L (8-16); CREATININE, SERUM 3.07 mg/dL (0.57-1.11); MAGNESIUM 1.8 MG/DL (1.3-2.1); PHOSPHORUS 2.9 MG/DL (2.3-4.7); POTASSIUM 3.8 mmol/L (3.5-5.1)
[2020-12-03] MEDS: SUCRALFATE 1 GM/10 ML SUSP PO SCH ×4 (07:30→20:55)
[2020-12-03] MEDS: PANTOPRAZOLE SOD 40 MG TABEC PO SCH ×2 (07:30→16:39)
[2020-12-03] MEDS: MIDODRINE HCL 5 MG TABLET PO SCH ×3 (07:38→16:39)
[2020-12-03] MEDS: AMIODARONE HCL 200 MG TAB PO SCH ×2 (07:38→20:55)
[2020-12-03] MEDS: APIXAB 2.5 MG TABLET PO SCH ×2 (07:38→20:55)
[2020-12-03] MEDS ORDERED: SODIUM CHLORIDE 0.9% 1000ML 1,000 ML ONE (07:50)
[2020-12-03] MEDS: PAROXETINE HCL 20 MG TAB PO SCH (09:00)
[2020-12-03] MEDS: MAGNESIUM OXIDE 400 MG TAB PO SCH ×2 (09:00→16:39)
[2020-12-03] MEDS: GABAPENTIN 100 MG CAP PO SCH ×3 (09:00→20:55)
[2020-12-03] MEDS: MEGESTROL ACETATE 40 MG TAB PO SCH ×2 (09:00→16:39)
[2020-12-03] MEDS: LACTOBACILLUS ACIDOPHILUS CAPSULE PO SCH ×2 (09:00→16:39)
[2020-12-03] MEDS: SODIUM HYPOCHLORITE 0.25% 480 ML SOLN IR SCH (09:25)
[2020-12-03] MEDS: POTASSIUM CHLORIDE 20 MEQ TAB CR PO SCH (14:07)
[2020-12-03] MEDS: GENTAMICIN 60MG/NS 50ML 50 ML IV SCH (19:28)
[2020-12-04] VITALS (7 sets, daily range): BP systolic 79–119; BP diastolic 36–73
[2020-12-04] MEDS: CEFTRIAXONE SOD 1 GM in SODIUM CHLORIDE 0.9% 50ML 50 ML IV SCH ×2 (05:39→16:36)
[2020-12-04] MEDS: LEVOTHYROXINE SODIUM 100 MCG TAB PO SCH (05:40)
[2020-12-04 07:47] LABS: ANION GAP 15.8 mmol/L (8-16); CALCIUM 7.9 mg/dL (8.4-10.2); CREATININE, SERUM 2.23 mg/dL (0.57-1.11); POTASSIUM 3.8 mmol/L (3.5-5.1)
[2020-12-04] MEDS: SODIUM HYPOCHLORITE 0.25% 480 ML SOLN IR SCH (08:40)
[2020-12-04] MEDS: PANTOPRAZOLE SOD 40 MG TABEC PO SCH ×2 (08:40→16:04)
[2020-12-04] MEDS: MIDODRINE HCL 5 MG TABLET PO SCH ×3 (08:40→16:04)
[2020-12-04] MEDS: SUCRALFATE 1 GM/10 ML SUSP PO SCH ×4 (08:40→20:04)
[2020-12-04] MEDS: AMIODARONE HCL 200 MG TAB PO SCH ×2 (08:41→20:04)
[2020-12-04] MEDS: POTASSIUM CHLORIDE 10MEQ EA PO SCH (08:41)
[2020-12-04] MEDS: PAROXETINE HCL 20 MG TAB PO SCH (08:42)
[2020-12-04] MEDS: MEGESTROL ACETATE 40 MG TAB PO SCH ×2 (08:42→16:04)
[2020-12-04] MEDS: GABAPENTIN 100 MG CAP PO SCH ×3 (08:42→20:04)
[2020-12-04] MEDS: LACTOBACILLUS ACIDOPHILUS CAPSULE PO SCH ×2 (08:42→16:04)
[2020-12-04] MEDS: MAGNESIUM OXIDE 400 MG TAB PO SCH ×2 (08:42→16:04)
[2020-12-04] MEDS: APIXAB 2.5 MG TABLET PO SCH ×2 (08:44→20:04)
[2020-12-05] VITALS (9 sets, daily range): BP systolic 80–97; BP diastolic 27–66
[2020-12-05 05:54] LABS: BASOPHILS % 0.1 % (0.0-1.0); EOSINOPHILS # (AUTO) 0.1 (0.0-0.4); EOSINOPHILS % 0.5 % (0.0-6.0); LYMPHOCYTES # (AUTO) 0.9 (1.0-3.2); LYMPHOCYTES % 8.4 % (18.0-39.1); MEAN CORPUSCULAR HEMOGLOBIN 29.3 pg (28-32); MEAN CORPUSCULAR HGB CONC 30.2 g/dL (31-35); MEAN CORPUSCULAR VOLUME 96.9 fL (81-99); MONOCYTES # (AUTO) 0.6 (0.2-0.8); MONOCYTES % 5.8 % (4.4-11.3); NEUTROPHILS # (AUTO) 8.8 (2.1-6.9); NEUTROPHILS % 84.4 % (38.7-80.0); PLATELET COUNT 102 x10e3/uL (140-360); RED BLOOD COUNT 2.29 x10e6/uL (3.6-5.1); RED CELL DISTRIBUTION WIDTH 18.1 % (11.7-14.4)
[2020-12-05] MEDS: CEFTRIAXONE SOD 1 GM in SODIUM CHLORIDE 0.9% 50ML 50 ML IV SCH ×2 (05:56→18:22)
[2020-12-05] MEDS: LEVOTHYROXINE SODIUM 100 MCG TAB PO SCH (05:56)
[2020-12-05 06:00] LABS: HEMOGLOBIN 6.7 g/dL (12.0-16.0)
[2020-12-05 06:01] LABS: HEMATOCRIT 22.2 % (34.2-44.1)
[2020-12-05 06:33] LABS: CREATININE, SERUM 2.96 mg/dL (0.57-1.11)
[2020-12-05] MEDS: MIDODRINE HCL 5 MG TABLET PO SCH ×3 (08:50→16:20)
[2020-12-05] MEDS: PANTOPRAZOLE SOD 40 MG TABEC PO SCH ×2 (08:50→16:20)
[2020-12-05] MEDS: SUCRALFATE 1 GM/10 ML SUSP PO SCH ×4 (08:50→21:28)
[2020-12-05] MEDS: MAGNESIUM OXIDE 400 MG TAB PO SCH ×2 (08:50→16:20)
[2020-12-05] MEDS: SODIUM HYPOCHLORITE 0.25% 480 ML SOLN IR SCH (08:50)
[2020-12-05] MEDS: APIXAB 2.5 MG TABLET PO SCH (08:50)
[2020-12-05] MEDS: AMIODARONE HCL 200 MG TAB PO SCH ×2 (08:50→21:28)
[2020-12-05] MEDS: MEGESTROL ACETATE 40 MG TAB PO SCH ×2 (08:51→16:20)
[2020-12-05] MEDS: GABAPENTIN 100 MG CAP PO SCH ×3 (08:51→21:28)
[2020-12-05] MEDS: LACTOBACILLUS ACIDOPHILUS CAPSULE PO SCH ×2 (08:51→16:20)
[2020-12-05] MEDS: POTASSIUM CHLORIDE 10MEQ EA PO SCH (08:51)
[2020-12-05] MEDS: PAROXETINE HCL 20 MG TAB PO SCH (08:51)
[2020-12-05] MEDS ORDERED: ALPRAZOLAM 0.25 MG TAB PO PRN (10:00)
[2020-12-05] MEDS ORDERED: SODIUM CHLORIDE 0.9% 250ML 250 ML IV ONE (10:00)
[2020-12-05 16:32] LABS: IRON 26 ug/dL (50-170); TRANSFERRIN < 70 mg/dL (180-382)
[2020-12-05 16:52] LABS: FERRITIN 1596.14 ng/mL (4.63-204.00)
[2020-12-06] VITALS (7 sets, daily range): BP systolic 96–120; BP diastolic 32–83
[2020-12-06] MEDS: LEVOTHYROXINE SODIUM 100 MCG TAB PO SCH (06:00)
[2020-12-06] MEDS ORDERED: CEFTRIAXONE SOD 1 GM VIAL ONE (06:28)
[2020-12-06] MEDS: CEFTRIAXONE SOD 1 GM in SODIUM CHLORIDE 0.9% 50ML 50 ML IV SCH ×2 (06:42→17:01)
[2020-12-06] MEDS: AMIODARONE HCL 200 MG TAB PO SCH ×2 (08:29→21:00)
[2020-12-06] MEDS: SODIUM HYPOCHLORITE 0.25% 480 ML SOLN IR SCH (08:29)
[2020-12-06] MEDS: SUCRALFATE 1 GM/10 ML SUSP PO SCH ×4 (08:29→21:00)
[2020-12-06] MEDS: PANTOPRAZOLE SOD 40 MG TABEC PO SCH ×2 (08:29→16:10)
[2020-12-06] MEDS: MIDODRINE HCL 5 MG TABLET PO SCH ×3 (08:29→16:10)
[2020-12-06] MEDS: MEGESTROL ACETATE 40 MG TAB PO SCH ×2 (08:30→16:10)
[2020-12-06] MEDS: LACTOBACILLUS ACIDOPHILUS CAPSULE PO SCH ×2 (08:30→16:10)
[2020-12-06] MEDS: PAROXETINE HCL 20 MG TAB PO SCH (08:30)
[2020-12-06] MEDS: MAGNESIUM OXIDE 400 MG TAB PO SCH ×2 (08:30→16:10)
[2020-12-06] MEDS: POTASSIUM CHLORIDE 10MEQ EA PO SCH (08:30)
[2020-12-06] MEDS: GABAPENTIN 100 MG CAP PO SCH ×3 (08:30→21:00)
[2020-12-06 11:16] LABS: BASOPHILS % 0.1 % (0.0-1.0); EOSINOPHILS # (AUTO) 0.1 (0.0-0.4); EOSINOPHILS % 0.5 % (0.0-6.0); HEMATOCRIT 27.6 % (34.2-44.1); HEMOGLOBIN 8.9 g/dL (12.0-16.0); LYMPHOCYTES # (AUTO) 0.7 (1.0-3.2); LYMPHOCYTES % 7.1 % (18.0-39.1); MEAN CORPUSCULAR HEMOGLOBIN 29.2 pg (28-32); MEAN CORPUSCULAR HGB CONC 32.2 g/dL (31-35); MEAN CORPUSCULAR VOLUME 90.5 fL (81-99); MONOCYTES # (AUTO) 0.4 (0.2-0.8); MONOCYTES % 3.9 % (4.4-11.3); NEUTROPHILS # (AUTO) 8.4 (2.1-6.9); NEUTROPHILS % 87.8 % (38.7-80.0); PLATELET COUNT 83 x10e3/uL (140-360); RED BLOOD COUNT 3.05 x10e6/uL (3.6-5.1); RED CELL DISTRIBUTION WIDTH 19.5 % (11.7-14.4)
[2020-12-06 12:00] LABS: ANION GAP 14.1 mmol/L (8-16); CALCIUM 7.9 mg/dL (8.4-10.2); CREATININE, SERUM 3.24 mg/dL (0.57-1.11); POTASSIUM 4.1 mmol/L (3.5-5.1)
[2020-12-06] MEDS ORDERED: GENTAMICIN 60MG/NS 50ML 50 ML IV SCH (18:00)
[2020-12-07] VITALS (8 sets, daily range): BP systolic 74–115; BP diastolic 35–74
[2020-12-07] MEDS: CEFTRIAXONE SOD 1 GM in SODIUM CHLORIDE 0.9% 50ML 50 ML IV SCH ×2 (05:52→17:18)
[2020-12-07] MEDS: LEVOTHYROXINE SODIUM 100 MCG TAB PO SCH (05:52)
[2020-12-07] MEDS: SUCRALFATE 1 GM/10 ML SUSP PO SCH ×4 (08:27→21:10)
[2020-12-07] MEDS: MIDODRINE HCL 5 MG TABLET PO SCH ×3 (08:27→17:18)
[2020-12-07] MEDS: AMIODARONE HCL 200 MG TAB PO SCH ×2 (08:27→21:10)
[2020-12-07] MEDS: SODIUM HYPOCHLORITE 0.25% 480 ML SOLN IR SCH (08:27)
[2020-12-07] MEDS: PANTOPRAZOLE SOD 40 MG TABEC PO SCH ×2 (08:27→17:18)
[2020-12-07] MEDS: GABAPENTIN 100 MG CAP PO SCH ×3 (08:28→21:10)
[2020-12-07] MEDS: MAGNESIUM OXIDE 400 MG TAB PO SCH ×2 (08:28→17:18)
[2020-12-07] MEDS: LACTOBACILLUS ACIDOPHILUS CAPSULE PO SCH ×2 (08:28→17:18)
[2020-12-07] MEDS: MEGESTROL ACETATE 40 MG TAB PO SCH ×2 (08:28→17:18)
[2020-12-07] MEDS: PAROXETINE HCL 20 MG TAB PO SCH (08:28)
[2020-12-07] MEDS: POTASSIUM CHLORIDE 10MEQ EA PO SCH (08:28)
[2020-12-08] VITALS (10 sets, daily range): BP systolic 80–117; BP diastolic 34–100
[2020-12-08] MEDS: CEFTRIAXONE SOD 1 GM in SODIUM CHLORIDE 0.9% 50ML 50 ML IV SCH ×2 (06:00→18:00)
[2020-12-08] MEDS: SUCRALFATE 1 GM/10 ML SUSP PO SCH ×4 (07:30→20:26)
[2020-12-08] MEDS: PANTOPRAZOLE SOD 40 MG TABEC PO SCH ×2 (07:30→16:30)
[2020-12-08] MEDS: MIDODRINE 2.5 MG TAB PO SCH ×3 (08:15→16:00)
[2020-12-08] MEDS: SODIUM HYPOCHLORITE 0.25% 480 ML SOLN IR SCH (08:49)
[2020-12-08] MEDS: AMIODARONE HCL 200 MG TAB PO SCH ×2 (08:49→18:40)
[2020-12-08] MEDS: POTASSIUM CHLORIDE 10MEQ EA PO SCH (08:50)
[2020-12-08] MEDS: MEGESTROL ACETATE 40 MG TAB PO SCH ×2 (08:51→17:00)
[2020-12-08] MEDS: MAGNESIUM OXIDE 400 MG TAB PO SCH ×2 (08:51→17:00)
[2020-12-08] MEDS: GABAPENTIN 100 MG CAP PO SCH ×3 (08:51→20:26)
[2020-12-08] MEDS: PAROXETINE HCL 20 MG TAB PO SCH (08:51)
[2020-12-08] MEDS: LACTOBACILLUS ACIDOPHILUS CAPSULE PO SCH ×2 (08:52→17:00)
[2020-12-08 10:14] LABS: BASOPHILS % 0.2 % (0.0-1.0); EOSINOPHILS % 0.5 % (0.0-6.0); HEMATOCRIT 27.5 % (34.2-44.1); HEMOGLOBIN 8.9 g/dL (12.0-16.0); LYMPHOCYTES # (AUTO) 0.7 (1.0-3.2); LYMPHOCYTES % 8.5 % (18.0-39.1); MEAN CORPUSCULAR HEMOGLOBIN 29.5 pg (28-32); MEAN CORPUSCULAR HGB CONC 32.4 g/dL (31-35); MEAN CORPUSCULAR VOLUME 91.1 fL (81-99); MONOCYTES # (AUTO) 0.3 (0.2-0.8); MONOCYTES % 3.9 % (4.4-11.3); NEUTROPHILS # (AUTO) 7.1 (2.1-6.9); NEUTROPHILS % 86.2 % (38.7-80.0); PLATELET COUNT 74 x10e3/uL (140-360); RED BLOOD COUNT 3.02 x10e6/uL (3.6-5.1)
[2020-12-08 10:26] LABS: ANION GAP 12.2 mmol/L (8-16); CALCIUM 8.1 mg/dL (8.4-10.2); CREATININE, SERUM 2.35 mg/dL (0.57-1.11); MAGNESIUM 2.2 MG/DL (1.3-2.1); POTASSIUM 3.2 mmol/L (3.5-5.1)
[2020-12-08 11:36] LABS: PHOSPHORUS 0.8 MG/DL (2.3-4.7)
[2020-12-08] MEDS: MIDODRINE HCL 5 MG TABLET PO PRN (20:27)
[2020-12-09] VITALS (10 sets, daily range): BP systolic 49–122; BP diastolic 28–78
[2020-12-09] MEDS: CEFTRIAXONE SOD 1 GM in SODIUM CHLORIDE 0.9% 50ML 50 ML IV SCH (05:39)
[2020-12-09] MEDS: LEVOTHYROXINE SODIUM 100 MCG TAB PO SCH ×2 (05:46→06:00)
[2020-12-09] MEDS: POTASSIUM CHLORIDE 10MEQ EA PO SCH (08:25)
[2020-12-09] MEDS: MIDODRINE 2.5 MG TAB PO SCH ×2 (08:38→12:43)
[2020-12-09] MEDS: PAROXETINE HCL 20 MG TAB PO SCH (08:40)
[2020-12-09] MEDS ORDERED: HYDROCODONE/APAP 10MG-325MG TAB PO PRN (08:45)
[2020-12-09] MEDS ORDERED: MORPHINE SULFATE 15MG TAB CR PO ONE (10:53)
[2020-12-09] MEDS: ALPRAZOLAM 0.5 MG TAB PO SCH ×3 (11:00→21:00)
[2020-12-09] MEDS: AMIODARONE HCL 200 MG TAB PO SCH ×2 (11:00→21:00)
[2020-12-09] MEDS: MORPHINE SULFATE 15MG TAB CR PO SCH ×2 (11:00→16:45)
[2020-12-09] MEDS ORDERED: ALPRAZOLAM 0.5 MG TAB ONE (11:13)
[2020-12-09] MEDS: SODIUM HYPOCHLORITE 0.25% 480 ML SOLN IR SCH (11:15)
[2020-12-09] MEDS: GABAPENTIN 300 MG CAP PO SCH ×2 (12:42→17:24)
[2020-12-09] MEDS: MIDODRINE HCL 5 MG TABLET PO SCH (16:30)
[2020-12-10] VITALS: BP 89/27
[2020-12-10 04:00] VITALS: BP 71/29
[2020-12-10] MEDS: GABAPENTIN 300 MG CAP PO SCH ×2 (06:00)
[2020-12-10] MEDS: LEVOTHYROXINE SODIUM 100 MCG TAB PO SCH (06:00)
[2020-12-10] MEDS: MIDODRINE HCL 5 MG TABLET PO SCH (08:15)
[2020-12-10 08:49] VITALS: BP 110/52
[2020-12-10] MEDS: ALPRAZOLAM 0.5 MG TAB PO SCH (08:53)
[2020-12-10] MEDS: MORPHINE SULFATE 15MG TAB CR PO SCH (08:53)
[2020-12-10] MEDS ORDERED: FENTANYL 50 MCG/HR PATCH TOP SCH (09:00)
[2020-12-10 09:04] VITALS: BP 110/52
[2020-12-10 09:50] VITALS: BP 84/49
== END 2020-12-10 11:00 | disposition hospice, home (50) | DRG 871 ==
LOC: FSED 08:36 → ERHOLD 11:02 → MED/SURG3 13:12
PROVIDERS: ADMIT Internal Medicine; ATTEND Internal Medicine
PROC: 5A1D70Z Performance of Urinary Filtration, Intermittent, Less than 6 Hours Per Day (ICD-10-PCS; principal; 2020-11-18)
PROC: 30233N1 Transfusion of Nonautologous Red Blood Cells into Peripheral Vein, Percutaneous Approach (ICD-10-PCS; 2020-11-18)
DX: A41.89 Other specified sepsis (principal); L89.894 Pressure ulcer of other site, stage 4; L89.44 Pressure ulcer of contiguous site of back, buttock and hip, stage 4; N18.6 End stage renal disease; J15.6 Pneumonia due to other Gram-negative bacteria; E43 Unspecified severe protein-calorie malnutrition; G92 Toxic encephalopathy; G93.41 Metabolic encephalopathy; D68.62 Lupus anticoagulant syndrome; Z68.41 Body mass index [BMI] 40.0-44.9, adult; I13.2 Hypertensive heart and chronic kidney disease with heart failure and with stage 5 chronic kidney disease, or end stage renal disease; Z99.2 Dependence on renal dialysis; N61.1 Abscess of the breast and nipple; E16.2 Hypoglycemia, unspecified; D50.9 Iron deficiency anemia, unspecified; D63.8 Anemia in other chronic diseases classified elsewhere; L94.2 Calcinosis cutis; I48.0 Paroxysmal atrial fibrillation; E83.59 Other disorders of calcium metabolism; E05.90 Thyrotoxicosis, unspecified without thyrotoxic crisis or storm; Z68.32 Body mass index [BMI] 32.0-32.9, adult; E87.6 Hypokalemia; B96.1 Klebsiella pneumoniae [K. pneumoniae] as the cause of diseases classified elsewhere; I25.2 Old myocardial infarction; Y95 Nosocomial condition; Z66 Do not resuscitate; Z51.5 Encounter for palliative care; I50.9 Heart failure, unspecified; Z20.822 Contact with and (suspected) exposure to COVID-19
CPT/HCPCS: 36415; 71045; 71250; 80048; 80053; 82270; 82728; 82948; 83540; 83735; 84100; 84443; 84466; 84484; 85025; 85610; 86704; 86706; 86850; 86900; 86920; 87040; 87071; 87186; 87205; 87340; 93005; 93306; 93931; 93971; 97139; 99251; 99284; J0696; J1100; J1580; J1720; J2150; J2270; J2405; J2543; J3370; J7030; J7050; J7799; P9016; U0002